=== PATIENT | female | born 1960 | race Caucasian/White ===

== ENCOUNTER 2018-06-24 15:47 | Outpatient (REF) | payer BC, SELFPAY ==
--- NOTE | 2018-06-24 15:05 | PAPFT_PTH ---
PATIENT: Jennie Snow LOC: [facility] U#:[id number] AGE/SX: 58/F ROOM: RE06/24/[address]: Madelyn Staples NP : 1960 BED: DIS: 06/24/2018 SPEC #: [id number] RECD: 06/24/18 17:32 STATUS: LUCITA BARROS #: [id number] OTONIEL: 06/24/18 15:[address]: Madelyn Staples NP DEPT: [facility] Cytology RECD BY: Yasmine Mc ENTERED: 06/24/18 17:32 SP TYPE: PAPFT OTHR DR: Stevan Hernandez Tissues: 1 - CX/ENDOCX FOR PAP SMEARS Procedures: PAP THIN PREP/[facility] Screening Comments: [id number] (UNSATISFACTORY FOR EVALUATION)
== END 2018-06-24 15:48 ==
LOC: LBN 15:47
PROVIDERS: PCP Internal Medicine; Visit Provider Nurse Practitioner Women's Health
DX: Z12.4 Encounter for screening for malignant neoplasm of cervix (principal); Z11.51 Encounter for screening for human papillomavirus (HPV)
CPT/HCPCS: 88142; 87624

== ENCOUNTER 2018-07-01 00:34 | Outpatient (CLI) | payer BC, SELFPAY ==
[2018-07-01] MEDS: Breeza Beverage 473 ML BTL PO (09:33)
[2018-07-01] MEDS: Omnipaque 350 MG/ML 50 ML BTL IJ (09:34)
--- NOTE | 2018-07-01 10:36 | DI.CT_ITS ---
SYMPTOM/DIAGNOSIS: ABNL WT LOSS, EPIGASTRIC PAIN ABDOMEN CT: CT examination of the abdomen was performed with intravenous infusion of 100 cc's of Omnipaque 350 and ingestion of dilute barium. Images obtained through the lung bases are unremarkable. IVC is somewhat dilated, this is a nonspecific finding but cardiac causes could not be excluded. Correlation with echocardiography may be considered. Liver is unremarkable in appearance. Pancreas appears intact. No biliary dilatation is seen. Spleen is unremarkable. There are tiny non obstructing, bilateral renal calculi. There are apparent small right renal cysts. Otherwise the kidneys and adrenals are unremarkable. Abdominal aorta is of normal diameter and no major arterial abnormality is seen. No abdominal adenopathy. CONCLUSION: Prominent dilatation of inferior vena cava, vena caval obstruction at the level of the thorax not excluded. Correlation with echocardiography should be considered. Alternatively, chest CT may also be considered.
[2018-07-01] MEDS: Omnipaque 350 MG/ML 100 ML BTL IJ (10:39)
[2018-07-01] MEDS: Normal Saline Flush 10 ML SYR IVP (10:40)
== END 2018-07-01 00:35 ==
PROVIDERS: PCP Internal Medicine; Visit Provider Internal Medicine
DX: R10.13 Epigastric pain (principal); R63.4 Abnormal weight loss; Z13.89 Encounter for screening for other disorder
CPT/HCPCS: 74160; 82565; J3490; Q9967

== ENCOUNTER 2018-11-16 00:45 | Outpatient (CLI) | payer BC, SELFPAY ==
--- NOTE | 2018-11-16 17:20 | DI.DEXA_ITS ---
EXAM: XR DEXA BONE DENSITY W/WO CHRISTINE INDICATION: SCREENING FOR OSTEOPOROSIS, Z13.820. COMPARISON: No exams were available for comparison TECHNIQUE: 2D digital imaging was performed. FINDINGS: Evaluation of the lateral spine shows no compression deformities. Evaluation of the left hip shows a total T-score of -2.8 and a Z-score of -1.8. This is consistent w ith osteoporosis and high fracture risk. Evaluation of the lumbar spine shows a total T-score of -2.4 and a Z-score of -1.0. This is consiste nt with osteopenia and increased fracture risk. IMPRESSION: Osteoporosis in the left hip.
== END 2018-11-16 00:46 ==
PROVIDERS: PCP Internal Medicine; Visit Provider Internal Medicine
DX: M81.0 Age-related osteoporosis without current pathological fracture; M85.88 Other specified disorders of bone density and structure, other site
CPT/HCPCS: 77080

== ENCOUNTER 2018-11-16 00:52 | Outpatient (CLI) | payer BC, SELFPAY ==
--- NOTE | 2018-11-16 16:00 | DI.MAMMO_ITS ---
EXAM: MG MAMMO SCREENING CLINICAL HISTORY: screening. TECHNIQUE: Mammograms were interpreted according to the usual protocol including computer analysis w [employer] CAD system, tomosynthesis and C-view imaging. COMPARISON: 2011. FINDINGS: The breasts are composed of extremely dense fibroglandular tissue, breast density category D. There a re no suspicious masses or suspicious microcalcifications. There has been no significant change. IMPRESSION: BI-RADS Cat 1 - Negative. Yearly screening mammography recommended. Breast Density - Category D - Extremely dense
== END 2018-11-16 00:53 ==
PROVIDERS: PCP Internal Medicine; Visit Provider Nurse Practitioner Women's Health
DX: Z12.31 Encounter for screening mammogram for malignant neoplasm of breast (principal)
CPT/HCPCS: 77063; 77067

== ENCOUNTER 2022-10-25 01:52 | Outpatient (CLI) | payer BC, SELFPAY ==
[2022-10-25 09:28] LABS: Abs Immature Grans 0.01 10^3/uL (0.0-0.06); Absolute Basophil Count 0.05 10^3/uL (0.0-0.2); Absolute Eosinophil Count 0.13 10^3/uL (0.0-0.7); Absolute Lymphocyte Count 0.99 10^3/uL (1.2-3.4); Absolute Monocyte Count 0.48 10^3/uL (0.1-0.8); Absolute Neutrophil Count 2.81 10^3/uL (1.2-6.7); Basophils % 1.1; Eosinophils % 2.9; HCT 36.3 % (36.0-46.0); Immature Grans % 0.2; Lymphocytes % 22.1; MCH 30.1 pg (27.0-33.0); MCHC 33.1 % (32.0-36.0); MCV 91 fL (80-95); Monocytes % 10.7; Platelet Count 285 10^3/uL (130-400); RBC 3.99 10^6/uL (3.93-5.22); RDW-SD 43.7 fL; WBC 4.47 10^3/uL (4.4-10.8)
[2022-10-25 10:25] LABS: ALT 24 U/L (14-59); AST 22 U/L (15-37); Albumin 3.6 g/dL (3.4-5.0); Alkaline Phosphatase 78 U/L (46-116); Anion Gap 5.3 mmol/L (3-11); BUN 20 mg/dL (7-18); CO2 28.7 mmol/L (21.0-32.0); CREATININE 0.9 mg/dL (0.55-1.02); Calcium 9.4 mg/dL (8.5-10.1); Calculated LDL 146 mg/dL (<100); Chloride 104 mmol/L (98-107); Cholesterol 228 mg/dL (<200); Estimated GFR 71.83 (mL/min/1.73m2); Glucose 105 mg/dL (74-106); HDL Cholesterol 70 mg/dL (40-60); Potassium 3.9 mmol/L (3.5-5.1); Sodium 138 mmol/L (136-145); TSH 2.27 uIU/mL (0.36-3.74); Total Protein 7.4 g/dL (6.4-8.2); Triglyceride 63 mg/dL (<150)
[2022-10-25 10:37] LABS: LDH 168 U/L (81-234); Lipase 246 U/L (16-77)
[2022-10-25 18:07] LABS: Parathyroid Hormone,Intact 27 pg/mL (19-88)
[2022-10-29 12:45] LABS: 25-Hydroxy D Total 55 ng/mL; 25-Hydroxy D2 <4.0 ng/mL; 25-Hydroxy D3 55 ng/mL
== END 2022-10-25 01:53 | disposition home or self-care (01) ==
LOC: LBO 01:53
PROVIDERS: PCP Internal Medicine; Visit Provider Internal Medicine
DX: R53.83 Other fatigue (principal); E78.5 Hyperlipidemia, unspecified; R74.8 Abnormal levels of other serum enzymes; M81.0 Age-related osteoporosis without current pathological fracture
CPT/HCPCS: 36415; 80053; 80061; 82306; 83690; 83615; 83970; 84443; 85025